=== PATIENT | female | born 1970 | race Caucasian/White ===

== ENCOUNTER 2020-04-30 14:32 | Observation (INO) | payer MEDICAID, OTHER, SELFPAY ==
[2020-04-30] VITALS (8 sets, daily range): BP systolic 104–131; BP diastolic 55–78
[~2020-04-30] VITALS: Ht 154.9 cm; Wt 69.6 kg
[2020-04-30] MEDS ORDERED: ADV500INH INH ×2 (14:42→21:14)
[2020-04-30 15:59] LABS: BLOOD UREA NITROGEN 12 MG/DL (7-18); CALCIUM LEVEL 8.5 MG/DL (8.5-10.1); CARBON DIOXIDE LEVEL 27 MEQ/L (21-32); CHLORIDE LEVEL 110 MEQ/L (98-107); GLOMERULAR FILTRATION RATE > 60.0 (>58); GLUCOSE, FASTING 79 MG/DL (70-100); POTASSIUM SERUM 4.1 MEQ/L (3.5-5.1); SODIUM LEVEL 141 MEQ/L (136-145)
[2020-04-30 16:56] LABS: BASO % 0.4 % (0.0-1.0); EOS # 0.2 10^3/uL (0.0-0.5); EOS % 1.8 % (0.0-3.0); HEMATOCRIT 24.4 % (36.0-47.0); LYMPH # 1.8 10^3/uL (1.5-5.0); LYMPH % 17.9 % (24.0-44.0); MEAN CORPUSCULAR HEMOGLOBIN 21.9 pg (27.0-33.0); MEAN CORPUSCULAR HGB CONC 28.7 g/dl (32.0-36.5); MEAN CORPUSCULAR VOLUME 76.3 fl (80.0-96.0); MONO # 0.8 10^3/uL (0.0-0.8); MONO % 7.8 % (0.0-5.0); NEUTROPHILS # 7.1 10^3/uL (1.5-8.5); NEUTROPHILS % 70.2 % (36.0-66.0); PLATELET COUNT, AUTOMATED 363 10^3/uL (150-450); WHITE BLOOD COUNT 10.1 10^3/uL (4.0-10.0)
[2020-04-30 18:24] LABS: IRON (FE) 22 UG/DL (50-170); PERCENT SATURATION 5.8 % (13.2-45.0); TOTAL IRON BINDING CAPACITY 381 UG/DL (250-450)
--- NOTE | 2020-04-30 19:36 | REPVR ---
PROCEDURE INFORMATION: Exam: US Nonobstetric Pelvis; Complete Exam date and time: 04/30/2020 6:27 PM Age: 49 years old Clinical indication: Vaginal pain; Additional info: Severe vaginal bleeding TECHNIQUE: Imaging protocol: Transabdominal pelvic nonobstetric ultrasound. Complete exam. Real time ultrasound with image documentation. Other technique: Real-time transabdominal and transvaginal pelvic ultrasound (complete) with 2-D rebollar scale, Duplex color Doppler flow and spectral waveform analysis with image documentation. Transvaginal imaging was used for better evaluation of the endometrium and adnexa. COMPARISON: No relevant prior studies available. FINDINGS: Uterus/cervix: The anteverted uterus is normal, measuring 11.8 x 4.7 x 6.5 cm. A septated uterus could be present. There appear to be two separate endometrial stripes measuring up to 5.1 mm on the left and 3.6 mm on the right. Right adnexa: The right ovary measures 1.8 x 2.6 x 3.2 cm. There is a septated small 1.7 x 1.0 x 1.3 cm cyst within the right ovary. mass. Normal arterial and venous blood flow. There is a complex mass present within the pelvis adjacent to the lower uterine segment and cervix which measures 6.3 x 3.7 x 6.6 cm and has the appearance of a large hemorrhagic cyst versus endometrioma versus neoplasm less likely. I would recommend a CT of the pelvis for further initial workup. Left adnexa: The left ovary is normal, measuring 2.6 x 1.4 x 3.3 cm. No mass. Normal arterial and venous blood flow. Intraperitoneal space: No intraperitoneal free fluid. Bladder: Normal. IMPRESSION: 1. There is a large complex mass present within the pelvis adjacent to the lower uterine segment and cervix which measures 6.3 x 3.7 x 6.6 cm and has the appearance of a large hemorrhagic cyst versus endometrioma versus neoplasm less likely. I would recommend a CT of the pelvis for further initial workup. 2. The anteverted uterus is normal, measuring 11.8 x 4.7 x 6.5 cm. A septated uterus could be present. There appear to be two separate endometrial stripes in the upper uterus measuring up to 5.1 mm on the left and 3.6 mm on the right. 3. There is a septated small 1.7 x 1.0 x 1.3 cm cyst within the right ovary. Electronically signed by: Terry Junior On 04/30/2020 19:35:27 PM
[2020-04-30] MEDS ORDERED: ALBU83IN INH (21:14)
[2020-04-30] MEDS ORDERED: PROAAER10 INH (21:14)
--- NOTE | 2020-04-30 21:25 | HPEPDOC ---
General Date of Admission 04/30/20 Date of Service: Apr 30, 2020 Chief Complaint The patient is a 49-year-old female admitted with a reason for visit of Vaginal Bleeding. Source: Patient Exam Limitations: No limitations Timing/Duration: Week(s) Severity: Moderate Associated Symptoms: Malaise, Shortness of breath History of Present Illness Patient is 49 years old female with past medical history of chronic anemia, asthma, colon cancer status post resection in 2011 presented to the hospital with lightheadedness, shortness of breath and dizziness. Patient stated that she has been having increased symptoms for past few months. She stated that for past 2 years she has been having heavy sporadic vaginal bleed lasting from 10-15 days. Patient does not have currently at [facility] physician to follow. Of note patient stated that 2 years ago colonoscopy was normal. In ER patient was found to have hemoglobin of 7, MCV 76.3. Transabdominal pelvic Ultrasound was done and showed There is a large complex mass present within the pelvis adjacent to the lower uterine segment and cervix which measures 6.3 x 3.7 x 6.6 cm and has the appearance of a large hemorrhagic cyst versus endometrioma versus neoplasm less likely. Dr. Benoit was contacted by phone by ER and he will see patient in the morning Home Medications Scheduled Salmeterol/Fluticasone (Advair 500-50 Diskus) 1 Each Blst.w.dev, 1 PUFF INH BID, (Reported) Scheduled PRN Albuterol Sulf (Albuterol Sulfate) 2.5 Mg/3 Ml Vial.neb, 2.5 MG INH QID PRN for SHORTNESS OF BREATH, (Reported) Albuterol Sulfate (Proair Hfa) 8.5 Gm Hfa.aer.ad, 2 PUFF INH Q4H PRN for SHORTNESS OF BREATH, (Reported) Allergies Coded Allergies: No Known Allergies (Unverified , 04/30/20) Past Medical History Medical History chronic anemia, asthma, colon cancer Surgical History colon cancer status post resection in 2012 Family History Father from heart attack Mother from leukemia Social History * Smoker: Denies Alcohol: Denies Drugs: denies A-FIB/CHADSVASC A-FIB History Current/History of A-Fib/PAF?: No Current PO Anticoag Therapy: No Review of Systems Constitutional: Reports: Fatigue; Denies: Fever Eyes: Denies: Pain ENT: Denies: Head Aches Skin: Denies: Rash, Lesions Pulmonary: Reports: Dyspnea Cardiovascular: Denies: Chest Pain, Palpitations Gastrointestinal: Denies: Nausea Genitourinary: Denies: Dysuria, Frequency Hematologic: Denies: Bruising Endocrine: Denies: Polydipsia, Polyphagia Musculoskeletal: Denies: Neck Pain Neurological: Denies: Weakness Psych: Reports: Mood Normal Physical Examination General Exam: Positive: Alert, Cooperative Eye Exam: Positive: PERRLA ENT Exam: Positive: Atraumatic Neck Exam: Positive: Supple; Negative: JVD Chest Exam: Positive: Clear to auscultation Heart Exam: Positive: Tachycardic; Negative: Rate Normal Telemetry: Positive: Sinus Abdomen Exam: Positive: Normal bowel sounds Extremity Exam: Negative: Clubbing, Cyanosis Skin Exam: Positive: Nl turgor and temperature Neuro Exam: Positive: Strength at 5/5 X4 ext, Cranial Nerves 3-12 NL Psych Exam: Positive: Mental status NL Vital Signs Vital Signs Date Time Temp Pulse Resp B/P (MAP) Pulse Ox O2 Delivery O2 Flow Rate FiO2 04/30/20 21:09 98.9 105 18 104/57 100 04/30/20 18:53 Room Air Laboratory Data Labs 24H Laboratory Tests 2 04/30/20 15:09: Anion Gap 4L, Glomerular Filtration Rate > 60.0, Calcium Level 8.5, Iron Level 22L, Total Iron Binding Capacity 381, Transferrin % Saturation 5.8L 04/30/20 15:24: POC Beta HCG, Quantitative < 5.0 04/30/20 16:38: Immature Granulocyte % (Auto) 1.9, Neutrophils (%) (Auto) 70.2H, Lymphocytes (%) (Auto) 17.9L, Monocytes (%) (Auto) 7.8H, Eosinophils (%) (Auto) 1.8, Basophils (%) (Auto) 0.4, Neutrophils # (Auto) 7.1, Lymphocytes # (Auto) 1.8, Monocytes # (Auto) 0.8, Eosinophils # (Auto) 0.2, Basophils # (Auto) 0.0, Nucleated Red Blood Cells % (auto) 0.0 CBC/BMP Laboratory Tests 04/30/20 15:09 04/30/20 16:38 Assessment/Plan Patient is 49 years old female with past medical history of chronic anemia, asthma, colon cancer status post resection in 2011 presented to the hospital with lightheadedness, shortness of breath and dizziness. Patient stated that she has been having increased symptoms for past few months. She stated that for past 2 years she has been having heavy sporadic vaginal bleed lasting from 10-15 days. Patient does not have currently at [facility] physician to follow. In ER patient was found to have hemoglobin of 7, MCV 76.3. Transabdominal pelvic Ultrasound was done and showed There is a large complex mass present within the pelvis adjacent to the lower uterine segment and cervix which measures 6.3 x 3.7 x 6.6 cm and has the appearance of a large hemorrhagic cyst versus endometrioma versus neoplasm less likely. Dr. Benoit was contacted by phone by ER and he will see patient in the morning Problems (1) Acute anemia Status: Acute Problem Text: Most likely secondary to dysfunctional uterine bleeding Appreciate/agree with necktie maker consult 2 units of blood transfusion H&H every 6 hours (2) DUB (dysfunctional uterine bleeding) Status: Acute Problem Text: Ultrasound showed There is a large complex mass present within the pelvis adjacent to the lower uterine segment and cervix which measures 6.3 x 3.7 x 6.6 cm and has the appearance of a large hemorrhagic cyst versus endometrioma versus neoplasm less likely We'll discuss CT pelvis/abdomen with [facility] team in the morning We'll check FSH, LH, estrogen, progesterone level Plan / VTE VTE Prophylaxis Ordered?: No VTE Exclusion Pharmacological: Active Bleeding DANIEL DICKERSON DO Apr 30, 2020 21:25
[2020-04-30 21:55] LABS: PROGESTERONE 3.67 NG/ML
[2020-04-30 21:56] LABS: FOLLICLE STIMULATING HORMONE 6.6 mIU/mL; LUTEINIZING HORMONE 1.7 mIU/mL
[2020-04-30] MEDS ORDERED: ALBUTEROL 90 MCG/ACT 8GM HFA INHALER INH PRN (23:00)
[2020-04-30] MEDS ORDERED: ALBUTEROL SULFATE 2.5 MG/0.5 ML INH NEB SOLN NEB PRN (23:00)
[2020-04-30] MEDS: ADVAIR HFA 230/21MCG INHALER INH SCH (23:29)
[2020-05-01 00:16] VITALS: BP 123/76
[2020-05-01 02:32] LABS: HEMATOCRIT 29.2 % (36.0-47.0); HEMOGLOBIN 8.9 g/dl (12.0-15.5)
[2020-05-01] MEDS: ACETAMINOPHEN TAB 650MG DOSE (2X325MG) PO PRN ×2 (02:33→08:08)
[2020-05-01 06:00] VITALS: BP 120/74
[2020-05-01] MEDS: ADVAIR HFA 230/21MCG INHALER INH SCH ×2 (07:17→19:36)
[2020-05-01 08:50] LABS: HEMATOCRIT 30.7 % (36.0-47.0); HEMOGLOBIN 9.4 g/dl (12.0-15.5); MEAN CORPUSCULAR HEMOGLOBIN 24.2 pg (27.0-33.0); MEAN CORPUSCULAR HGB CONC 30.6 g/dl (32.0-36.5); MEAN CORPUSCULAR VOLUME 79.1 fl (80.0-96.0); PLATELET COUNT, AUTOMATED 347 10^3/uL (150-450); RED BLOOD COUNT 3.88 10^6/uL (4.00-5.40); WHITE BLOOD COUNT 7.1 10^3/uL (4.0-10.0)
[2020-05-01 09:16] LABS: BLOOD UREA NITROGEN 6 MG/DL (7-18); CALCIUM LEVEL 8.2 MG/DL (8.5-10.1); CARBON DIOXIDE LEVEL 25 MEQ/L (21-32); CHLORIDE LEVEL 109 MEQ/L (98-107); CREATININE FOR GFR 0.77 MG/DL (0.55-1.30); GLOMERULAR FILTRATION RATE > 60.0 (>58); GLUCOSE, FASTING 108 MG/DL (70-100); MAGNESIUM LEVEL 2.2 MG/DL (1.8-2.4); POTASSIUM SERUM 3.8 MEQ/L (3.5-5.1); SODIUM LEVEL 142 MEQ/L (136-145)
[2020-05-01 14:00] VITALS: BP 124/73
[2020-05-01 14:17] LABS: HEMATOCRIT 29.3 % (36.0-47.0); HEMOGLOBIN 9.1 g/dl (12.0-15.5)
--- NOTE | 2020-05-01 15:16 | CR.PDOC ---
General Date of Consultation: May 01, 2020 Attending Physician: A Consultation REASON FOR CONSULTATION/CHIEF COMPLAINT: anemia due to heavy vaginal bleeding. HISTORY OF PRESENT ILLNESS: 49 yo female presented to the ER on 04/30/20 with heavy bleeding. She passed clots. She felt dizzy. The is unpredictable. It can occur any time, and can last for weeks. She has no pain. She does not have a gynecology provider. She was told in the past she may have fibroids. She has had heavy bleeding intermittently for the past two years. ALLERGIES: Please see below. HOME MEDICATIONS: Please see below. PAST MEDICAL HISTORY: 1. colon cancer. 2. asthma. PAST SURGICAL HISTORY: 1. partial colectomy 2012 2. section x 3 FAMILY HISTORY: Father: Mother: Siblings: Children: Hereditary Diseases: Unexpected deaths due to medical reasons: SOCIAL HISTORY: Marital status and/or living arrangements: Children: 4 Employment: unemployed currently Tobacco use:no ETOH: Illicit drug use: IV drug use: Other relevant social factors: REVIEW OF SYSTEMS: normal PHYSICAL EXAMINATION: VITAL SIGNS: Please see below. GENERAL APPEARANCE: wnl. HEENT: wnl. RESPIRATORY:CTA bilaterally. CARDIOVASCULAR: RRR, no murmurs. ABDOMEN: soft, NT, ND EXTREMITIES: No C/C/E. NEUROLOGICAL: CN's 2-12 intact. PSYCHIATRIC: A + O x 3. LABORATORY DATA: Hb=7 g/dl. ASSESSMENT/PLAN: 49 yo female with menorrhagia, anemia 1. Plan to start Provera 10 mg daily for 10 days to acutely stop bleeding 2. Reviewed medical and surgical options for menorrhagia. This included OCP's, Provera, Mirena IUD, or Depoprovera. Surgical options include hysterectomy. She may not be a good candidate for endometrial ablation due to the presence of a uterine septum 3. She can follow up in the office for further management Vital Signs/I&O Vital Signs Date Time Temp Pulse Resp B/P (MAP) Pulse Ox O2 Delivery O2 Flow Rate FiO2 05/01/20 14:00 98.2 96 16 124/73 (90) 98 Room Air I&O- Last 24 Hours up to 6 AM 05/01/20 06:00 Intake Total 1190 ml Output Total 0 ml Balance 1190 ml Laboratory Data Labs 24H Laboratory Tests 2 04/30/20 15:09: Anion Gap 4L, Glomerular Filtration Rate > 60.0, Calcium Level 8.5, Iron Level 22L, Total Iron Binding Capacity 381, Transferrin % Saturation 5.8L, Follicle Stimulating Hormone 6.6, Luteinizing Hormone 1.7, Progesterone Level 3.67 04/30/20 15:24: POC Beta HCG, Quantitative < 5.0 04/30/20 16:38: Immature Granulocyte % (Auto) 1.9, Neutrophils (%) (Auto) 70.2H, Lymphocytes (%) (Auto) 17.9L, Monocytes (%) (Auto) 7.8H, Eosinophils (%) (Auto) 1.8, Basophils (%) (Auto) 0.4, Neutrophils # (Auto) 7.1, Lymphocytes # (Auto) 1.8, Monocytes # (Auto) 0.8, Eosinophils # (Auto) 0.2, Basophils # (Auto) 0.0, Nucleated Red Blood Cells % (auto) 0.0 05/01/20 08:22: Anion Gap 8, Glomerular Filtration Rate > 60.0, Calcium Level 8.2L, Nucleated Red Blood Cells % (auto) 0.0, Magnesium Level 2.2 CBC/BMP Laboratory Tests 04/30/20 15:09 04/30/20 16:38 05/01/20 02:21 05/01/20 08:22 05/01/20 13:57 Allergies Coded Allergies: No Known Allergies (Unverified , 04/30/20) Home Medications Scheduled Salmeterol/Fluticasone (Advair 500-50 Diskus) 1 Each Blst.w.dev, 1 PUFF INH BID, (Reported) Scheduled PRN Albuterol Sulf (Albuterol Sulfate) 2.5 Mg/3 Ml Vial.neb, 2.5 MG INH QID PRN for SHORTNESS OF BREATH, (Reported) Albuterol Sulfate (Proair Hfa) 8.5 Gm Hfa.aer.ad, 2 PUFF INH Q4H PRN for SHORTNESS OF BREATH, (Reported) VIC CHEUNG MD May 01, 2020 15:16
[2020-05-01] MEDS: medroxyPROGESTERone 5MG TABLET PO SCH (17:40)
--- NOTE | 2020-05-01 20:09 | IPNPDOC ---
Subjective Date Seen The patient was seen on 05/01/20. Subjective Chief Complaint/HPI Patient is a 49 year old female who is here for symptomatic anemia secondary to dysfunctional uterine bleeding. Patient was seen in the morning. She denies fever/chills, chest pain, dyspnea, abdominal pain, or dysuria. She told me she still had a little bit of bleeding. Constitutional: Denies: Fever Pulmonary: Denies: Dyspnea Cardiovascular: Denies: Chest Pain Gastrointestinal: Denies: Abdominal Pain Genitourinary: Denies: Dysuria Objective Physical Examination General Exam: Positive: Alert, Cooperative Eye Exam: Positive: PERRLA ENT Exam: Positive: Atraumatic Neck Exam: Positive: Supple; Negative: JVD Chest Exam: Positive: Clear to auscultation Heart Exam: Positive: Rate Normal, Regular Rhythm Abdomen Exam: Positive: Normal bowel sounds Extremity Exam: Negative: Clubbing, Cyanosis Skin Exam: Positive: Nl turgor and temperature Neuro Exam: Positive: Strength at 5/5 X4 ext, Cranial Nerves 3-12 NL Psych Exam: Positive: Mental status NL Assessment /Plan Assessment Patient is a 49 year old female here with symptomatic anemia secondary to dysfunctional uterine bleed. tourist information officer was consulted. Recommendations appreciated. She did receive 2 units of blood. Responded appropriately. Continue to monitor hemoglobin Plan/VTE VTE Prophylaxis Ordered?: Yes Plan 1. Acute symptomatic anemia 2/2 acute blood loss anemia -Given 2 units of blood which she responded -Uterine bleeding -Monitor hemoglobin 2. Dysfunctional uterine bleeding -Uterine bleeding this morning had slowed down -senior electrical engineer consulted. Recommendations appreciated. -On Provera -Follow up with senior electrical engineer outpatient 3. Asthma -Stable -Continue inhalers 4. Microcytic anemia -Start on iron supplements -Check fecal occult blood 5. DVT ppx -SCD and TEDs due to acute blood loss anemia VS, I&O, 24H, Fishbone Vital Signs/I&O Vital Signs Date Time Temp Pulse Resp B/P (MAP) Pulse Ox O2 Delivery O2 Flow Rate FiO2 05/01/20 14:00 98.2 96 16 124/73 (90) 98 Room Air I&O- Last 24 Hours up to 6 AM 05/01/20 06:00 Intake Total 1190 ml Output Total 0 ml Balance 1190 ml Laboratory Data 24H LABS Laboratory Tests 2 05/01/20 08:22: Nucleated Red Blood Cells % (auto) 0.0, Anion Gap 8, Glomerular Filtration Rate > 60.0, Calcium Level 8.2L, Magnesium Level 2.2 CBC/BMP Laboratory Tests 05/01/20 02:21 05/01/20 08:22 05/01/20 13:57 KIRSTEN EDWARDS DO May 01, 2020 20:09
[2020-05-01 20:25] LABS: HEMATOCRIT 31.8 % (36.0-47.0); HEMOGLOBIN 9.6 g/dl (12.0-15.5)
[2020-05-01 22:00] VITALS: BP 124/74
[2020-05-02 02:00] VITALS: BP 117/59
[2020-05-02 07:06] LABS: HEMATOCRIT 30.9 % (36.0-47.0); HEMOGLOBIN 9.6 g/dl (12.0-15.5); MEAN CORPUSCULAR HEMOGLOBIN 24.7 pg (27.0-33.0); MEAN CORPUSCULAR HGB CONC 31.1 g/dl (32.0-36.5); MEAN CORPUSCULAR VOLUME 79.6 fl (80.0-96.0); PLATELET COUNT, AUTOMATED 339 10^3/uL (150-450); RED BLOOD COUNT 3.88 10^6/uL (4.00-5.40); WHITE BLOOD COUNT 10.1 10^3/uL (4.0-10.0)
[2020-05-02 07:35] LABS: BLOOD UREA NITROGEN 5 MG/DL (7-18); CALCIUM LEVEL 8.2 MG/DL (8.5-10.1); CARBON DIOXIDE LEVEL 22 MEQ/L (21-32); CHLORIDE LEVEL 111 MEQ/L (98-107); GLOMERULAR FILTRATION RATE > 60.0 (>58); GLUCOSE, FASTING 109 MG/DL (70-100); POTASSIUM SERUM 3.7 MEQ/L (3.5-5.1); SODIUM LEVEL 141 MEQ/L (136-145)
[2020-05-02 08:00] VITALS: BP 120/57
[2020-05-02] MEDS: ADVAIR HFA 230/21MCG INHALER INH SCH (08:19)
[2020-05-02] MEDS: ACETAMINOPHEN TAB 650MG DOSE (2X325MG) PO PRN (08:50)
[2020-05-02] MEDS ORDERED: FERROUS GLUCONATE 324 MG TAB PO SCH (09:00)
[2020-05-02] MEDS: medroxyPROGESTERone 5MG TABLET PO SCH (09:39)
[2020-05-02] MEDS ORDERED: MEDR10TA PO (10:27)
[2020-05-02] MEDS ORDERED: FERR32TA PO (10:27)
--- NOTE | 2020-05-02 22:46 | DS.PDOC ---
Discharge Summary General Date of Admission Apr 30, 2020 at 14:33 Date of Discharge May 02, 2020 Attending Physician: KIRSTEN EDWARDS DO Specialist[facility], Dr. Benoit Discharge Summary PROCEDURES PERFORMED DURING STAY: Blood transfusion 2u pRBC on 04/30/2020 ADMITTING DIAGNOSES: 1. Acute blood loss anemia 2. Dysfunctional uterine bleeding 3. Asthma 4. Microcytic anemia DISCHARGE DIAGNOSES: 1. Acute blood loss anemia 2. Dysfunctional uterine bleeding 3. Asthma 4. Microcytic anemia COMPLICATIONS/CHIEF COMPLAINT: Dysfunctional Uterine Bleeding. HISTORY OF PRESENT ILLNESS: Patient is 49 years old female with past medical history of chronic anemia, asthma, colon cancer status post resection in 2011 presented to the hospital with lightheadedness, shortness of breath and dizziness. Patient stated that she has been having increased symptoms for past few months. She stated that for past 2 years she has been having heavy sporadic vaginal bleed lasting from 10-15 days. Patient does not have currently at [facility] physician to follow. Of note patient stated that 2 years ago colonoscopy was normal. Dr. Benoit was contacted by phone by ER and will be seeing the patient HOSPITAL COURSE: During her hospitalization, she was transfused 2u pRBC and responded appropriately. She was seen by Dr. Benoit who recommended Provera 10 mg daily for 10 days and outpatient follow up for further management. She was started on Provera inpatient and did well. The following day the bleeding has mostly stopped and H&H has been stable. Today, she is feeling well. Denies lightheadedness, fever/chills, chest pain, dyspnea, abdominal pain, diarrhea, or dysuria. She was subsequently discharged homed DISCHARGE MEDICATIONS: Please see below. ALLERGIES: Please see below. PHYSICAL EXAMINATION ON DISCHARGE: VITAL SIGNS: Please see below. GENERAL: Comfortable, in no apparent distress. HEENT: Head normocephalic/atraumatic, EOMI, sclera clear. NECK: Supple RESPIRATORY: Lungs clear to auscultation bilaterally, no rales, wheeze or rhonchi. CARDIOVASCULAR: Regular rate and rhythm. ABDOMEN: Soft, nontender, no guarding or rebound tenderness. Normal bowel sounds. MUSCLE SKELETAL: Muscle strength 5/5 in all extremities. NEUROLOGICAL: CN 312 grossly intact, no focal deficits noted. PSYCHOLOGICAL: Normal mood and affect LABORATORY DATA: Please see below. IMAGING: US pelvis 1. There is a large complex mass present within the pelvis adjacent to the lower uterine segment and cervix which measures 6.3 x 3.7 x 6.6 cm and has the appearance of a large hemorrhagic cyst versus endometrioma versus neoplasm less likely. I would recommend a CT of the pelvis for further initial workup. 2. The anteverted uterus is normal, measuring 11.8 x 4.7 x 6.5 cm. A septated uterus could be present. There appear to be two separate endometrial stripes in the upper uterus measuring up to 5.1 mm on the left and 3.6 mm on the right. 3. There is a septated small 1.7 x 1.0 x 1.3 cm cyst within the right ovary. PROGNOSIS: Stable ACTIVITY: As tolerated. DIET: Regular DISCHARGE PLAN: Home DISPOSITION: 01 Home, Self-Care. DISCHARGE INSTRUCTIONS: 1. Follow up with your PCP within 7 days 2. Follow up with [facility] in 7 days 3. Continue Provera for 10 days DISCHARGE CONDITION: Stable. Total time spent on discharge planning, discharge summary, and medication reconciliation: 35 mins. Vital Signs/I&Os Vital Signs Date Time Temp Pulse Resp B/P (MAP) Pulse Ox O2 Delivery O2 Flow Rate FiO2 05/02/20 08:00 98.8 94 18 120/57 (78) 99 Room Air I&O- Last 24 Hours up to 6 AM 05/02/20 06:00 Intake Total 1390 ml Output Total 1400 ml Balance -10 ml Laboratory Data Labs 24H Laboratory Tests 2 05/02/20 06:47: Nucleated Red Blood Cells % (auto) 0.0, Anion Gap 8, Glomerular Filtration Rate > 60.0, Calcium Level 8.2L CBC/BMP Laboratory Tests 05/02/20 06:47 Discharge Medications Scheduled Ferrous Gluconate (Ferrous Gluconate) 324 Mg Tablet, 324 MG PO Q48H Medroxyprogesterone Acetate (Medroxyprogesterone Acetate) 10 Mg Tablet, 10 MG PO DAILY Salmeterol/Fluticasone (Advair 500-50 Diskus) 1 Each Blst.w.dev, 1 PUFF INH BID, (Reported) Scheduled PRN Albuterol Sulf (Albuterol Sulfate) 2.5 Mg/3 Ml Vial.neb, 2.5 MG INH QID PRN for SHORTNESS OF BREATH, (Reported) Albuterol Sulfate (Proair Hfa) 8.5 Gm Hfa.aer.ad, 2 PUFF INH Q4H PRN for SHORTNESS OF BREATH, (Reported) Allergies Coded Allergies: No Known Allergies (Unverified , 04/30/20) KIRSTEN EDWARDS DO May 02, 2020 21:19
== END 2020-05-02 12:00 | disposition home or self-care (01) ==
LOC: M ED 14:32 → M ED INP 14:33 → ENRESERV 22:03 → M MSPAV 22:27 → M PED 05-02 01:47
PROVIDERS: ADMIT Internal Medicine; ATTEND Internal Medicine
DX: D62 Acute posthemorrhagic anemia (principal); N93.8 Other specified abnormal uterine and vaginal bleeding; J45.909 Unspecified asthma, uncomplicated; D50.8 Other iron deficiency anemias; Z85.038 Personal history of other malignant neoplasm of large intestine; Z90.49 Acquired absence of other specified parts of digestive tract; Z79.899 Other long term (current) drug therapy
CPT/HCPCS: 36415; 36430; 76830; 76856; 80048; 82672; 83001; 83002; 83550; 83735; 84144; 84702; 85014; 85018; 85025; 85027; 86850; 86900; 86901; 86920; 93976; 94640; 99285; P9016